=== PATIENT | female | born 1990 | race Caucasian/White ===

== ENCOUNTER 2018-10-17 03:36 | Emergency (ER) | payer SELFPAY | END 2018-10-17 04:20 | disposition home or self-care (01) | LOC: ERS 03:36 | DX: S39.012A Strain of muscle, fascia and tendon of lower back, initial encounter (principal); M54.41 Lumbago with sciatica, right side; X50.9XXA Other and unspecified overexertion or strenuous movements or postures, initial encounter | CPT/HCPCS: 99283 ==